=== PATIENT | male | born 1955 | race Caucasian/White ===

== ENCOUNTER 2020-12-13 06:50 | Day surgery (SDC) | payer BC, MEDICARE ==
[2020-12-09 08:56] VITALS: BMI 29.5
--- NOTE | 2020-12-13 05:36 | P.GSHP ---
History of Present Illness H&P Date: 12/13/20 CHIEF COMPLAINT: Colon screen HISTORY OF PRESENT ILLNESS: The patient is a 65-year-old male who presents for colon screen. Lower endoscopy was offered for further evaluation and management. PAST MEDICAL HISTORY: Please see list. PAST SURGICAL HISTORY: Please see list. MEDICATIONS: Please see list. ALLERGIES: Please see list. SOCIAL HISTORY: No illicit drug use FAMILY HISTORY: No reports of Crohn disease or ulcerative colitis. REVIEW OF ORGAN SYSTEMS: CONSTITUTIONAL: No reports of fevers or chills. PHYSICAL EXAM: VITAL SIGNS: Stable GENERAL: Well-developed pleasant in no acute distress. HEENT: No scleral icterus. Extraocular movements grossly intact. Moist buccal mucosa. NECK: Supple without lymphadenopathy. CHEST: Unlabored respirations. Equal bilateral excursions. CARDIOVASCULAR: Regular rate and rhythm. Distal 2+ pulses. ABDOMEN: Soft, nontender, nondistended. MUSCULOSKELETAL: No clubbing, cyanosis, or edema. ASSESSMENT: 1. Colon screen. PLAN: 1. Recommend proceeding with a lower endoscopy Past Medical History Past Medical History: Hyperlipidemia, Hypertension, Sleep Apnea/CPAP/BIPAP Additional Past Medical History / Comment(s): HX OF POLYPS, arthritis and back spasms, DOES NOT USE CPAP, History of Any Multi-Drug Resistant Organisms: None Reported Past Surgical History: Hernia Repair, Orthopedic Surgery Additional Past Surgical History / Comment(s): UMBILICAL HERNIA, zachery inginual hernias, ARTHROSCOPY KNEE, colonoscopy Past Anesthesia/Blood Transfusion Reactions: Previous Problems w/ Anesthesia Additional Past Anesthesia/Blood Transfusion Reaction / Comment(s): STATES FIRST COLONOSCOPY DIDN'T STAY ASLEEP Smoking Status: Never smoker - Past Family History Father Family Medical History: Cancer Additional Family Medical History / Comment(s): bladder Mother Family Medical History: Congestive Heart Failure (CHF), Deep Vein Thrombosis (DVT) Medications and Allergies Home Medications Medication Instructions Recorded Confirmed Type Atorvastatin [Lipitor] 80 mg PO HS 08/10/14 12/09/20 History atenoloL [Tenormin] 50 mg PO QAM 08/10/14 12/09/20 History hydroCHLOROthiazide 25 mg PO QAM 08/10/14 12/09/20 History Ibuprofen [Motrin] 600 mg PO Q6H PRN 01/17/16 12/09/20 History amLODIPine [Norvasc] 5 mg PO QAM 01/17/16 12/09/20 History Ascorbic Acid [Vitamin C] 1,000 mg PO DAILY 08/23/16 12/09/20 History Cholecalciferol [Vitamin D3] 2,000 unit PO DAILY 08/23/16 12/09/20 History Chromium Picolinate 1,000 mcg PO DAILY 08/23/16 12/09/20 History Multivitamins, Thera [Multivitamin] 1 tab PO DAILY 08/23/16 12/09/20 History [place]-3 Fatty Acids/Fish Oil [Fish 1 each PO DAILY 08/23/16 12/09/20 History Oil 1,000 mg Softgel] Selenium 100 mcg PO DAILY 08/23/16 12/09/20 History Olmesartan Medoxomil 40 mg PO HS 12/09/20 12/09/20 History diphenhydrAMINE [Benadryl] 25 mg PO HS 12/09/20 12/09/20 History Allergies Allergy/AdvReac Type Severity Reaction Status Date / Time No Known Allergies Allergy Verified 12/09/20 08:53
[~2020-12-13 06:50] MED LIST: LACTATED RINGERS 1,000 ML IV SCH; LIDOCAINE 1% (10MG/ML) FOR IV START INTRADERMA PRN
[2020-12-13 07:26] VITALS: TEMP 97.7
[2020-12-13] MEDS ORDERED: PROPOFOL 10 MG/ML 20 ML VIAL IV ONE (07:33)
[2020-12-13] MEDS ORDERED: LIDOCAINE 1% INJ 10MG/ML (20 ML MDV) ONE (07:33)
--- NOTE | 2020-12-13 07:59 | P.PCN ---
Date of Procedure: 12/13/20 Description of Procedure: PREOPERATIVE DIAGNOSIS: Personal history of colon polyps Colonoscopy screening POSTOPERATIVE DIAGNOSIS: Personal history of colon polyps Hyperplastic polyp, sigmoid colon Internal hemorrhoids, grade 2 OPERATION: Colonoscopy to the ileocecal valve and cecum Colonoscopy with cold forceps biopsy SURGEON: Kenyetta Queen MD. ANESTHESIA: MAC. INDICATIONS: The patient is an 65-year-old male who presents with personal history of colon polyps. Last colonoscopy 5 years. Benefits and risks were described and informed consent was obtained. DESCRIPTION OF PROCEDURE: The patient had undergone Suprep tablets. The patient had been brought into the operating room and laid in the left lateral decubitus position. After adequate intravenous sedation, the rectum was examined with 2% lidocaine jelly. The prostate was unremarkable. External hemorrhoids were encountered. The rectal tone was within normal limits. No lesions were palpated in the rectal vault. An Olympus colonoscope was advanced until the cecum, ileocecal valve and appendiceal orifice were clearly viewed. The prep was excellent. no sigmoid diverticulosis was encountered. Colonic polyps were found and removed. No evidence of focal colitis was found. Retroflexion of the scope demonstrated grade 2 internal hemorrhoids without active bleeding or inflammation. The colon was desufflated. The patient had tolerated the procedure well. Withdrawal time was over 6 minutes. FINDINGS: Aronchick preparation quality scale 1 (1-5) Internal hemorrhoids, grade 2 with recent inflammation and bleeding External hemorrhoids, grade 2. No arteriovenous malformations. No sigmoid diverticulosis Removal of 4 polyps: - Cold forceps biopsy at 15 cm from the anal verge x 4, 3 to 5 mm polyps, sigmoid colon. - Cold forceps biopsy at proximal transverse colon, 4 mm polyp. No focal colitis. RECOMMENDATIONS: Repeat colonoscopy in 5 years, 2025 Plan - Discharge Summary Discharge Rx Participant: No New Discharge Prescriptions: Continue Atorvastatin [Lipitor] 80 mg PO HS hydroCHLOROthiazide 25 mg PO QAM atenoloL [Tenormin] 50 mg PO QAM amLODIPine [Norvasc] 5 mg PO QAM Ibuprofen [Motrin] 600 mg PO Q6H PRN PRN Reason: Pain Cholecalciferol [Vitamin D3 (25 Mcg = 1000 Iu)] 2,000 unit PO DAILY Selenium 100 mcg PO DAILY Chromium Picolinate 1,000 mcg PO DAILY [place]-3 Fatty Acids/Fish Oil [Fish Oil 1,000 mg Softgel] 1 each PO DAILY Multivitamins, Thera [Multivitamin (formulary)] 1 tab PO DAILY Ascorbic Acid [Vitamin C] 1,000 mg PO DAILY diphenhydrAMINE [Benadryl] 25 mg PO HS Olmesartan Medoxomil 40 mg PO HS Discharge Medication List Atorvastatin [Lipitor] 80 mg PO HS 08/10/14 [History] atenoloL [Tenormin] 50 mg PO QAM 08/10/14 [History] hydroCHLOROthiazide 25 mg PO QAM 08/10/14 [History] Ibuprofen [Motrin] 600 mg PO Q6H PRN 01/17/16 [History] amLODIPine [Norvasc] 5 mg PO QAM 01/17/16 [History] Ascorbic Acid [Vitamin C] 1,000 mg PO DAILY 08/23/16 [History] Cholecalciferol [Vitamin D3 (25 Mcg = 1000 Iu)] 2,000 unit PO DAILY 08/23/16 [History] Chromium Picolinate 1,000 mcg PO DAILY 08/23/16 [History] Multivitamins, Thera [Multivitamin (formulary)] 1 tab PO DAILY 08/23/16 [His tory] [place]-3 Fatty Acids/Fish Oil [Fish Oil 1,000 mg Softgel] 1 each PO DAILY 08/23/16 [History] Selenium 100 mcg PO DAILY 08/23/16 [History] Olmesartan Medoxomil 40 mg PO HS 12/09/20 [History] diphenhydrAMINE [Benadryl] 25 mg PO HS 12/09/20 [History] Follow up Appointment(s)/Referral(s): Kenyetta Queen MD [STAFF PHYSICIAN] - As Needed Patient Instructions/Handouts: Colonoscopy (DC), *Surgery [facility] - (Anesthesia) Endoscopy Discharge Instructions, Colorectal Polyps (DC) Activity/Diet/Wound Care/Special Instructions: Repeat colonoscopy 5 years, 2025 Discharge Disposition: HOME SELF-CARE
[2020-12-13 08:08] VITALS: RESP 16
[2020-12-13 08:22] VITALS: BP 107/74; PULSE 57
== END 2020-12-13 08:42 | disposition home or self-care (01) ==
LOC: ORWHC2ENDO 06:50
PROVIDERS: ATTEND Surgery Plastic and Reconstructive Surgery
DX: Z12.11 Encounter for screening for malignant neoplasm of colon (principal); K63.5 Polyp of colon; K64.1 Second degree hemorrhoids; I10 Essential (primary) hypertension; E78.5 Hyperlipidemia, unspecified; G47.30 Sleep apnea, unspecified; M47.9 Spondylosis, unspecified; Z79.899 Other long term (current) drug therapy; Z82.49 Family history of ischemic heart disease and other diseases of the circulatory system; Z86.010 Personal history of colon polyps
CPT/HCPCS: 88305; 45380; J2001; J2704

== ENCOUNTER → 2021-07-05 | Outpatient (CLI) | payer MEDICARE ==
--- NOTE | 2021-07-05 14:59 | CONS ---
CONSULTATION REASON FOR CONSULTATION: Sleep apnea. 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 He was diagnosed back in 2007. He was told that he had severe disease. He was given CPAP therapy with a pressure of 10 cm of water. He used it for one year and he was unable to continue with the treatment, as he felt the pressure was high and he was quite uncomfortable and unable to tolerate it. Over the years, he has remained symptomatic. His current Robinson score is 16. He is snoring. He is having witnessed apneas. He is averaging around 7-8 hours of sleep and despite that he is feeling somnolent and sleepy. Robinson score is at 16. No recent weight gain. He is a nose breather. He denies waking up in the middle of night choking or gasping for air. Occasionally he grinds his teeth. He is waking up tired and non-refreshed and he is having increased sleepiness during the day. No episodes of falling asleep while driving. No history of any motor vehicle accident because of feeling drowsy or sleepy. He drinks coffee in the morning. He takes naps in the afternoon. He sleeps on his side and back. No TV in the bedroom environment. Comorbidities are all stable. PAST MEDICAL HISTORY: MARINA, hypertension, hyperlipidemia. SURGICAL HISTORY: Surgical history includes hernia repair, right meniscal tear with previous repair. OUTPATIENT MEDICATION: Outpatient medication includes: 1. Vitamin D3 1000 units daily. 2. Vitamin C 500 mg p.o. daily. 3. Viagra 100 mg p.o. daily. 4. Olmesartan 400 mg p.o. daily. 5. Multivitamin 1 tablet a day. 6. Ibuprofen 600 mg p.o. daily. 7. Hydrochlorothiazide 25 mg p.o. daily. 8. Lipitor 80 mg p.o. daily. 9. Atenolol 50 mg p.o. daily. 10.Aspirin 81 mg p.o. daily. 11.Norvasc 5 mg p.o. daily. FAMILY HISTORY: Mother had rheumatoid arthritis. Father with hyperlipidemia, hypertension, chronic stage 3 kidney disease and bladder cancer along with heart disease, and he underwent bypass surgery. Brother has obstructive sleep apnea as well as psoriasis and hypertension. Daughter with hypertension. DRUG ALLERGIES: NOT KNOWN. SOCIAL HISTORY: The patient is a nonsmoker. No history of alcoholism. No history of IV drugs. 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 REVIEW OF SYSTEMS: Fourteen-point review of systems was done. Positive findings are all mentioned in the history of present illness. His health maintenance in general is up to date. He has arthritis of the knees. No recent weight gain or weight loss. No nasal congestion. No sinus swelling. No sinus pain. No infections. No eye irritation. No chest pain. No cough or sputum production, chest tightness or wheezing. No skin rashes. PHYSICAL EXAMINATION: VITAL SIGNS: BP is 146/85, pulse 84, respirations 16. Saturation is 99% on room-air oxygen. Temperature 98.4, weight is 222, height is 6 feet 1 inch. Neck size 16 inches. GENERAL APPEARANCE: Calm, comfortable. HEAD: Atraumatic, normocephalic. NECK: Supple. No JVD. No goiter or neck masses. Mallampati class 4. LUNGS: Clear to auscultation. HEART: Heart sounds are regular rate and rhythm. Normal S1, S2. No S3, S4. No murmurs. ABDOMEN: Soft, nontender. No organomegaly. EXTREMITIES: No edema. No cyanosis or clubbing. IMPRESSION: 1. Symptomatic obstructive sleep apnea. Patient is presenting for re-evaluation. Diagnosis was established in 2007 and the patient failed CPAP therapy after using it for one year. 2. Hypersomnia. Robinson score of 16. 3. Chronic snoring. 4. Hypertension. 5. Hyperlipidemia. PLAN: The patient is coming in and he is interested in treatment for obstructive sleep apnea. He was inquiring about the Inspire system. All of the information was given regarding Inspire. The pros and cons of Inspire system versus CPAP therapy were discussed with the patient. He will need a re-evaluation with a home sleep study to reevaluate the presence and severity of obstructive sleep apnea. Based on that, a final decision will be made on treatment options. Encourage weight loss. Optimize good sleep hygiene measures. Will continue to follow. DALEL / KYEN: [id number] /
== END ==
LOC: SLEEP 12:54
PROVIDERS: ATTEND Internal Medicine Critical Care Medicine
DX: G47.33 Obstructive sleep apnea (adult) (pediatric) (principal); I10 Essential (primary) hypertension; E78.5 Hyperlipidemia, unspecified; Z79.899 Other long term (current) drug therapy; Z99.89 Dependence on other enabling machines and devices
CPT/HCPCS: 99211

== ENCOUNTER → 2021-12-20 | Outpatient (CLI) | payer MEDICARE ==
--- NOTE | 2021-12-20 20:11 | PN ---
PROGRESS NOTE [facility]EP [facility] PROGRESS NOTE: This patient is being seen for followup at the Sleep Center regarding obstructive sleep apnea. The patient is coming in for a compliancy check. The patient was diagnosed having severe MARINA and the patient's baseline apnea-hypopnea index was quite elevated at 58. The patient was given a CPAP titration. The patient was titrated to a CPAP pressure of 7 cm of water. Currently he is using a CPAP machine and the patient is also using a DreamWear full-face mask, large size. He reports marked improvement in his sleep quality. He is waking up refreshed. He has not fallen asleep while driving. His blood pressure control has also improved while being on CPAP therapy. Based on a 30-day compliancy, the patient has been averaging around 8 hours and 6 minutes of CPAP use per night and his CPAP usage for more than 4 hours is 100%. The patient's apnea- hypopnea index has been down to 2.6. The patient has no major leaks around the mask. As such, the patient has no complaints, is quite content, and seems to be committed to long-term CPAP therapy. No recent weight gain or weight loss otherwise. No cardiac arrhythmias. No angina. No palpitations. Lynd score is currently 12. BP is 149/84. Pulse is 62, respirations 16, temperature 97.9, saturation 96% on room air. Weight is 233. GENERAL APPEARANCE: Calm, comfortable. HEAD: Atraumatic, normocephalic. Neck is supple. No JVD. No goiter or neck masses. LUNGS: Clear to auscultation. Heart sounds are regular rate and rhythm. Normal S1, S2. No S3, S4. No murmurs. ABDOMEN: Soft, nontender. No organomegaly. EXTREMITIES: No edema. No cyanosis or clubbing. IMPRESSION: 1. Severe obstructive sleep apnea with an AHI of 58. The patient is undergoing successful CPAP therapy at a pressure of 7 cm of water. 2. Nocturnal oxygen desaturation, improved with CPAP therapy. 3. Chronic hypersomnia, improved with CPAP therapy. 4. Hypertension with better blood pressure control. 5. Chronic hypersomnia. 6. Hyperlipidemia. PLAN: 1. Encourage weight loss. 2. Continue CPAP therapy at a pressure of 7 cm of water. 3. DreamWear full-face mask, large size, will be used as a mask interface. 4. Treatment is successful. Compliance data was checked. Encourage weight loss. Implement good sleep hygiene measures. See me back in a year's time in followup. The patient's treatment is successful for now. MMODL / IJN: [id number] /
== END ==
LOC: SLEEP 16:14
PROVIDERS: ATTEND Internal Medicine Critical Care Medicine
DX: G47.33 Obstructive sleep apnea (adult) (pediatric) (principal); G47.36 Sleep related hypoventilation in conditions classified elsewhere; I10 Essential (primary) hypertension; E78.5 Hyperlipidemia, unspecified; Z99.89 Dependence on other enabling machines and devices